=== PATIENT | female | born 1990 | race Two or more races ===

== ENCOUNTER 2017-10-14 09:36 | Outpatient (CLI) | payer OTHER | END 2017-10-14 09:41 | disposition home or self-care (01) | LOC: RX STUDY 09:36 | DX: O00.109 Unspecified tubal pregnancy without intrauterine pregnancy (principal); N39.0 Urinary tract infection, site not specified ==

== ENCOUNTER 2020-10-09 09:50 | Outpatient (CLI) | payer OTHER | END 2020-10-09 09:55 | disposition home or self-care (01) | LOC: RX STUDY 09:50 | PROVIDERS: ATTEND Obstetrics & Gynecology | DX: N80.2 Endometriosis of fallopian tube (principal) ==

== ENCOUNTER 2021-06-08 18:03 | Emergency (ER) | payer OTHER ==
[~2021-06-08] VITALS: Ht 160 cm; Wt 59.0 kg
[2021-06-08] MEDS ORDERED: SYNTHROID50 MCG PO (18:17)
[2021-06-08] MEDS ORDERED: PRENATAL + DHA1 EAC1 PO (18:17)
== END 2021-06-08 21:58 | disposition home or self-care (01) ==
LOC: ER 18:03
DX: P01.8 Newborn affected by other maternal complications of pregnancy (principal); S39.92XA Unspecified injury of lower back, initial encounter; V49.88XA Car occupant (driver) (passenger) injured in other specified transport accidents, initial encounter; Y93.89 Activity, other specified; Y92.413 State road as the place of occurrence of the external cause

== ENCOUNTER 2021-10-22 09:12 | Outpatient (CLI) | payer OTHER ==
[~2021-10-22 09:12] MED LIST: PRENATAL + DHA1 EAC1 PO; SYNTHROID50 MCG PO
== END 2021-10-22 09:54 | disposition home or self-care (01) ==
LOC: NST 09:12
PROVIDERS: ATTEND Obstetrics & Gynecology Maternal & Fetal Medicine
DX: Z34.83 Encounter for supervision of other normal pregnancy, third trimester (principal)

== ENCOUNTER 2021-11-05 09:30 | Outpatient (CLI) | payer OTHER | END 2021-11-05 11:15 | disposition home or self-care (01) | LOC: NST 09:30 | PROVIDERS: ATTEND Obstetrics & Gynecology Gynecology | DX: Z34.83 Encounter for supervision of other normal pregnancy, third trimester (principal) ==

== ENCOUNTER 2021-11-06 05:53 | Inpatient (IN) | payer OTHER ==
[~2021-11-06] VITALS: Ht 160 cm; Wt 72.6 kg
== END 2021-11-08 13:18 | disposition home or self-care (01) | DRG 807 ==
LOC: OB/GYN 05:53 → LDR 05:53 → OB/GYN 14:28 → LDR 11-11 15:51
PROVIDERS: ADMIT Obstetrics & Gynecology; ATTEND Obstetrics & Gynecology
PROC: 10E0XZZ Delivery of Products of Conception, External Approach (ICD-10-PCS; principal; 2021-11-06)
PROC: 0KQM0ZZ Repair Perineum Muscle, Open Approach (ICD-10-PCS; 2021-11-06)
PROC: 3E033VJ Introduction of Other Hormone into Peripheral Vein, Percutaneous Approach (ICD-10-PCS; 2021-11-06)
PROC: 4A1HXCZ Monitoring of Products of Conception, Cardiac Rate, External Approach (ICD-10-PCS; 2021-11-06)
DX: O70.1 Second degree perineal laceration during delivery (principal); Z37.0 Single live birth; Z3A.39 39 weeks gestation of pregnancy; Z20.822 Contact with and (suspected) exposure to COVID-19